=== PATIENT | male | born 1960 | race Caucasian/White ===

== ENCOUNTER 2016-12-21 16:06 | Emergency (ER) | payer OTHER ==
[~2016-12-21] VITALS: Ht 167.6 cm; Wt 54.4 kg
--- NOTE | ~2016-12-21 | EKG ---
PATIENT: JOSH MAC UNIT #: [id number] Ventricular Rate: 62 BPM Atrial Rate: 62 BPM P-R Interval: 136 ms QRS Duration: 86 ms Q-T Interval: 380 ms QTC Calculation(Bezet): 385 ms P [place]: 65 degrees Calculated R [place]: 69 degrees Calculated T [place]: 55 degrees Diagnosis Line: Normal sinus rhythm Diagnosis Line: Normal ECG Diagnosis Line: When compared with ECG of 07-JUN-2016 07:03, Diagnosis Line: No significant change was found Diagnosis Line: Confirmed by ELYSSA MENDOZA MD ([id number]) on 12/23/2016 Diagnosis Line: 2:56:52 PM INTERPRETING MD: REJI RIVERA
--- NOTE | ~2016-12-21 | CT71 ---
[facility] A Service of [facility] RADIOLOGY TEXT RESULTS PATIENT: JOSH MAC LOCATION: [facility] : 62 UNIT #: [id number] AGE: [address]: Fredrick Farah MD SEX: M ORDER DR: [id number] [facility] [address] [place], [place] [address] [id number] E MR#: [id number] Acc #: [id number] NAME: JOSH MAC : 1960 SEX: M STUDY DATE/TIME: 12/21/2016 21:20 UNIT: [facility] ROOM: STUDY DESCRIPTION: CT Head Wo Contrast Attending Physician: Fredrick Farah M.D. Ordering Physician: Fredrick Farah M.D. Primary Care Physician: Nicole Sanchez M.D. MEDICAL IMAGING REPORT This report is preliminary unless electronic signature is present EXAMINATION CT head without contrast. DATE 12/21/2016 HISTORY Dizziness, weakness and blurred vision for 1 week. Left side headache for [address] head, 06/06/2016. TECHNIQUE This CT exam was performed with one or more of the following radiation dose reduction techniques: automatic exposure control, adjustment of mA and/or kV according to patient size, and iterative reconstruction. FINDINGS No acute intracranial hemorrhage, mass lesion, mass effect or midline shift is seen and there is no CT evidence of acute or evolving infarct. Ventricular configuration is normal. Paranasal sinuses and mastoid air cells appear clear. IMPRESSION 1. Normal noncontrast CT head. Dictated by... Aparna Bradshaw M.D. THIS IS AN ELECTRONICALLY VERIFIED REPORT Aparna Bradshaw M.D. at 12/24/2016 8:38 AM [facility] A Service [facility] RADIOLOGY TEXT RESULTS PATIENT: JOSH MAC LOCATION: [facility] : 62 UNIT #: [id number] AGE: [address]: Fredrick Farah MD SEX: M ORDER DR: CRYS/xenia TD: 12/22/2016 17:04 JOB #: [id number] MEDICAL IMAGING REPORT Page 1 of 1 COPY
--- NOTE | ~2016-12-21 | CR72 ---
[facility] A Service of [facility] RADIOLOGY TEXT RESULTS PATIENT: JOSH MAC LOCATION: [facility] : 62 UNIT #: [id number] AGE: [address]: Fredrick Farah MD SEX: M ORDER DR: [id number] [facility] [address] [place], [place] [address] [id number] E MR#: [id number] Acc #: [id number] NAME: JOSH MAC : 1960 SEX: M STUDY DATE/TIME: 12/21/2016 20:57 UNIT: [facility] ROOM: STUDY DESCRIPTION: CR Chest Single View Portable Attending Physician: Fredrick Farah M.D. Ordering Physician: Fredrick Farah M.D. Primary Care Physician: Nicole Sanchez M.D. MEDICAL IMAGING REPORT This report is preliminary unless electronic signature is present EXAM Single view chest INDICATIONS Chest and back pain. TECHNIQUE Single portable AP view of the chest compared to 06/06/2016. FINDINGS Heart and mediastinal contours normal. The lungs are clear. No pleural effusion. IMPRESSION No acute cardiopulmonary findings. Dictated by... Roman Ureña M.D. THIS IS AN ELECTRONICALLY VERIFIED REPORT Roman Ureña M.D. at 12/22/2016 8:01 PM ALBERTO/steven TD: 12/22/2016 16:44 JOB #: [id number] MEDICAL IMAGING REPORT Page 1 of 1 COPY
[~2016-12-21 16:06] MED LIST: LORTAB 7.5-5001 TAB PO; NO MEDICATIONS; SYNTHROID25 MCG PO
[2016-12-21 18:00] LABS: BASOPHIL% 0.7 % (0-2.5); DIFF IND NO; EOSINOPHIL# 0.1 X10e3 (0-0.7); EOSINOPHIL% 0.9 % (0.0-7.0); HEMATOCRIT 41.8 % (38.0-50.0); HEMOGLOBIN 13.9 gm/dL (13.0-16.0); LYMPHOCYTE# 1.9 X10e3 (1.0-3.5); LYMPHOCYTE% 27.8 % (17.0-45.0); MEAN CELL VOLUME 85.1 FL (83-96); MEAN CORPUSCULAR HEMOGLOBIN 28.2 PG (28-34); MEAN CORPUSCULAR HGB CONC 33.1 g/dL (30-36); MEAN PLATELET VOLUME 8.3 FL (6.5-11.5); MONOCYTE# 0.5 X10e3 (0-1.0); MONOCYTE% 7.3 % (3.0-12.0); NEUTROPHIL# 4.3 X10e3 (1.5-7.1); NEUTROPHIL% 63.3 % (40-75); PLATELET COUNT 277 X10e3 (140-420); RED BLOOD COUNT 4.92 X10e (3.90-5.60); WHITE BLOOD COUNT 6.8 X10e3 (4.0-10.5)
[2016-12-21 18:33] LABS: URINE SOURCE CLEAN CATCH
[2016-12-21 18:34] LABS: ALBUMIN SERUM 4.4 g/dL (3.5-5.0); ALKALINE PHOSPHATASE 54 U/L (32-92); ALT (SGPT) 18 U/L (10-40); AST (SGOT) 21 U/L (10-42); BILIRUBIN,TOTAL 0.7 mg/dL (0.2-2.0); BLOOD UREA NITROGEN 16 mg/dL (9-23); CALCIUM SERUM 9.6 mg/dL (8.4-10.2); CARBON DIOXIDE 26 mmol/L (22-31); CHLORIDE 105 mmol/L (100-111); GLOM FILT RATE Estimated 84.4 mL/min (>60); GLUCOSE FASTING 92 mg/dL (70-110); POTASSIUM 4.7 mmol/L (3.5-5.1); PROTEIN TOTAL SERUM 7.4 g/dL (6.0-8.3); SODIUM 139 mmol/L (135-145)
[2016-12-21 18:39] LABS: URINE APPEARANCE CLEAR; URINE BILIRUBIN NEG (NEG); URINE BLOOD NEG (NEG); URINE COLOR YELLOW; URINE GLUCOSE NEG (NEG); URINE KETONE NEG (NEG); URINE LEUKOCYTE ESTERASE NEG (NEG); URINE NITRATE NEG (NEG); URINE PH 6.5 (5-8); URINE PROTEIN NEG (NEG); URINE SPECIFIC GRAVITY 1.018 (1.003-1.035); URINE UROBILINOGEN 0.2 MG/DL (NEG)
[2016-12-21 18:40] LABS: BILIRUBIN, DIRECT <0.1 mg/dL (0.0-0.2); BILIRUBIN,INDIRECT 0.6 mg/dL (0.0-0.9)
[2016-12-21 18:48] LABS: CULTURE INDICATED? NO
[2016-12-21 21:36] LABS: POC - CKMB <1.0 ng/mL (0.0-7.9); POC - TROPONIN <0.05 ng/mL (<=0.05)
[2016-12-21 21:52] LABS: POC - CKMB <1.0 ng/mL (0.0-7.9); POC - TROPONIN <0.05 ng/mL (<=0.05)
== END 2016-12-21 22:45 | disposition home or self-care (01) ==
LOC: CED 16:06
PROVIDERS: Emergency Medicine
DX: R42 Dizziness and giddiness (principal); Z90.49 Acquired absence of other specified parts of digestive tract; F17.200 Nicotine dependence, unspecified, uncomplicated
CPT/HCPCS: 36415; 70450; 71010; 80048; 80076; 81003; 82553; 84443; 84484; 85025; 93005; 96361; 96374; 99284; J2765